=== PATIENT | male | born 1985 ===

== ENCOUNTER 2020-10-29 21:15 | Emergency (ER) | payer SELFPAY ==
[~2020-10-29] VITALS: Ht 188 cm; Wt 117.9 kg
[2020-10-29 21:22] VITALS: BP 132/85; Ht 188 cm; Wt 117.9 kg
[2020-10-29] MEDS ORDERED: CEPHALEXIN500 M1 PO (22:00)
== END 2020-10-29 22:18 | disposition home or self-care (01) ==
LOC: D.ER 21:15
DX: S51.012A Laceration without foreign body of left elbow, initial encounter (principal); S41.112A Laceration without foreign body of left upper arm, initial encounter; W45.8XXA Other foreign body or object entering through skin, initial encounter; Y93.9 Activity, unspecified; Y92.9 Unspecified place or not applicable